=== PATIENT | male | born 1965 ===

== ENCOUNTER 2022-04-29 06:00 | Outpatient (RCR) | payer BC, SELFPAY | END 2022-05-29 23:59 | disposition home or self-care (01) | LOC: TPT 06:00 | PROVIDERS: Visit Provider Nurse Practitioner Family | DX: M54.50 Low back pain, unspecified (principal) | CPT/HCPCS: 97162 ==

== ENCOUNTER 2022-05-30 06:00 | Outpatient (RCR) | payer BC, SELFPAY | END 2022-06-26 23:59 | disposition home or self-care (01) | LOC: TPT 06:00 | PROVIDERS: Visit Provider Nurse Practitioner Family | DX: M54.50 Low back pain, unspecified (principal); G89.29 Other chronic pain | CPT/HCPCS: 97032; 97110; 97140 ==

== ENCOUNTER 2022-06-27 06:00 | Outpatient (RCR) | payer BC, SELFPAY | END 2022-07-27 23:59 | disposition home or self-care (01) | LOC: TPT 06:00 | PROVIDERS: Visit Provider Nurse Practitioner Family | DX: M54.50 Low back pain, unspecified (principal); G89.29 Other chronic pain | CPT/HCPCS: 97110 ==